=== PATIENT | female | born 1995 | race Two or more races ===

== ENCOUNTER → 2020-01-24 | Outpatient (CLI) | payer BC ==
[2020-01-24 10:43] LABS: BASO # 0.1 10^3/uL (0.0-0.2); BASO % 0.8 % (0.0-1.0); EOS # 0.5 10^3/uL (0.0-0.5); EOS % 7.6 % (0.0-3.0); HEMATOCRIT 38.3 % (36.0-47.0); HEMOGLOBIN 12.6 g/dl (12.0-15.5); LYMPH # 1.7 10^3/uL (1.5-5.0); MEAN CORPUSCULAR HEMOGLOBIN 28.7 pg (27.0-33.0); MEAN CORPUSCULAR HGB CONC 32.9 g/dl (32.0-36.5); MEAN CORPUSCULAR VOLUME 87.2 fl (80.0-96.0); MONO # 0.5 10^3/uL (0.0-0.8); MONO % 8.8 % (0.0-5.0); NEUTROPHILS # 3.4 10^3/uL (1.5-8.5); NEUTROPHILS % 55.5 % (36.0-66.0); PLATELET COUNT, AUTOMATED 249 10^3/uL (150-450); RED BLOOD COUNT 4.39 10^6/uL (4.00-5.40); WHITE BLOOD COUNT 6.2 10^3/uL (4.0-10.0)
[2020-01-24 11:32] LABS: ALBUMIN 3.7 GM/DL (3.2-5.2); ALT/SGPT 14 U/L (12-78); BILIRUBIN,TOTAL 0.4 MG/DL (0.2-1.0); BLOOD UREA NITROGEN 13 MG/DL (7-18); CALCIUM LEVEL 8.5 MG/DL (8.5-10.1); CARBON DIOXIDE LEVEL 23 MEQ/L (21-32); CHLORIDE LEVEL 111 MEQ/L (98-107); COMPLEMENT C3 80 MG/DL (90-180); COMPLEMENT C4 18 MG/DL (10-40); GLOMERULAR FILTRATION RATE > 60.0 (>60); GLUCOSE, FASTING 73 MG/DL (70-100); IMMUNOGLOBULIN G 1330 MG/DL (681-1648); POTASSIUM SERUM 4.3 MEQ/L (3.5-5.1); SODIUM LEVEL 140 MEQ/L (136-145); TOTAL PROTEIN 7.3 GM/DL (6.4-8.2)
[2020-01-29 07:23] LABS: IgG SERUM (part of Subclasses) 1511 mg/dL (586-1602); IgG Subclass 1 711 mg/dL (248-810); IgG Subclass 2 481 mg/dL (130-555); IgG Subclass 3 100 mg/dL (15-102); IgG Subclass 4 35 mg/dL (2-96)
== END ==
LOC: M WUC 08:34
PROVIDERS: ATTEND Nurse Practitioner Family
DX: R76.8 Other specified abnormal immunological findings in serum (principal)

== ENCOUNTER → 2020-03-12 | Outpatient (CLI) | payer BC ==
[2020-03-16 04:10] LABS: D001-IgE D pteronyssinus 2.57 kU/L (Class III); E001-IgE Cat Epith/Dander < 0.10 kU/L (Class 0); E003-IGE HORSE EPITHELIA/DAND <0.10 kU/L (Class 0); E004-IGE COW DANDER <0.10 kU/L (Class 0); E005-IgE Dog Dander < 0.10 kU/L (Class 0); F004-IgE Wheat 0.18 kU/L (Class 0/I); F013-IgE Peanut 0.38 kU/L (Class I); F014-IgE Soybean < 0.10 kU/L (Class 0); F026-IgE Pork < 0.10 kU/L (Class 0); F027-IgE Beef < 0.10 kU/L (Class 0); F245-IgE Egg, Whole < 0.10 kU/L (Class 0); FX02-IgE Food Mix (Sea Foods) Negative (.); G002-IgE Bermuda Grass 0.27 kU/L (Class 0/I); G008-IgE Kentucky Bluegrass 0.67 kU/L (Class II); M001-IgE Penicillium chrysogen < 0.10 kU/L (Class 0); M002 IgE Cladosporium herbaru < 0.10 kU/L (Class 0); M003 IgE Aspergillus fumigatu < 0.10 kU/L (Class 0); M006-IgE Alternaria alternata < 0.10 kU/L (Class 0); T001-IgE Maple/Box Elder 1.44 kU/L (Class III); T003-IgE Common Silver Birch 1.96 kU/L (Class III); T006-IgE Cedar, Mountain 0.32 kU/L (Class I); T007-IgE Oak, White 1.12 kU/L (Class II); T008-IgE Elm, American 0.22 kU/L (Class 0/I); T070-IgE White Mulberry 0.34 kU/L (Class I); W001-IgE Ragweed, Short 9.97 kU/L (Class IV); W009-IgE Plantain, English 0.29 kU/L (Class 0/I); W014-IgE Pigweed, Rough < 0.10 kU/L (Class 0); W018-IgE Sheep Sorrel < 0.10 kU/L (Class 0)
== END ==
LOC: M WUC 14:55
PROVIDERS: ATTEND Nurse Practitioner Family
DX: J30.1 Allergic rhinitis due to pollen (principal); J30.81 Allergic rhinitis due to animal (cat) (dog) hair and dander; J30.89 Other allergic rhinitis

== ENCOUNTER → 2022-03-21 | Outpatient (CLI) | payer BC ==
[2022-03-21 17:58] LABS: IMMUNOGLOBULIN E 73.8 IU/ML (<100)
== END ==
LOC: M WUC 10:51
PROVIDERS: ATTEND Nurse Practitioner Family
DX: J45.20 Mild intermittent asthma, uncomplicated (principal); J30.1 Allergic rhinitis due to pollen; J30.81 Allergic rhinitis due to animal (cat) (dog) hair and dander; J30.89 Other allergic rhinitis; R05.9 Cough, unspecified; R94.2 Abnormal results of pulmonary function studies; E73.0 Congenital lactase deficiency

== ENCOUNTER → 2022-09-05 | Outpatient (CLI) | payer BC | LOC: M WUC 11:57 | PROVIDERS: ATTEND Physician Assistant | DX: R06.00 Dyspnea, unspecified (principal) ==

== ENCOUNTER → 2022-11-22 | Outpatient (CLI) | payer BC ==
[~2022-11-22] MED LIST: METHACHOLINE KIT INH ONE
== END ==
LOC: M CARPUL 14:37
PROVIDERS: ATTEND Physician Assistant
DX: R06.00 Dyspnea, unspecified (principal)

== ENCOUNTER → 2023-08-29 | Outpatient (CLI) | payer OTHER ==
[2023-08-29 20:00] LABS: BASO # 0.1 10^3/uL (0.0-0.2); BASO % 0.9 % (0.0-1.0); EOS # 0.9 10^3/uL (0.0-0.5); EOS % 11.9 % (0.0-3.0); HEMATOCRIT 43.3 % (36.0-47.0); HEMOGLOBIN 13.6 g/dl (12.0-15.5); LYMPH # 1.3 10^3/uL (1.5-5.0); LYMPH % 17.7 % (24.0-44.0); MEAN CORPUSCULAR HGB CONC 31.4 g/dl (32.0-36.5); MEAN CORPUSCULAR VOLUME 89.1 fl (80.0-96.0); MONO # 0.8 10^3/uL (0.0-0.8); MONO % 11.3 % (2.0-8.0); NEUTROPHILS # 4.3 10^3/uL (1.5-8.5); NEUTROPHILS % 57.8 % (36.0-66.0); PLATELET COUNT, AUTOMATED 400 10^3/uL (150-450); RED BLOOD COUNT 4.86 10^6/uL (4.00-5.40); WHITE BLOOD COUNT 7.5 10^3/uL (4.0-10.0)
== END ==
LOC: M WUC 11:39
PROVIDERS: ATTEND Physician Assistant
DX: J45.40 Moderate persistent asthma, uncomplicated (principal)

== ENCOUNTER → 2024-02-14 | Outpatient (CLI) | payer OTHER ==
[2024-02-15 11:32] LABS: COMPLEMENT C3 107.1 MG/DL (84.0-160.0); COMPLEMENT C4 29.9 MG/DL (12-36); IMMUNOGLOBULIN A 205.2 MG/DL (40-350); IMMUNOGLOBULIN G 1819 MG/DL (650-1600)
== END ==
LOC: M WUC 10:22
PROVIDERS: ATTEND Allergy & Immunology
DX: J30.1 Allergic rhinitis due to pollen (principal); J32.0 Chronic maxillary sinusitis; R05.3 Chronic cough

== ENCOUNTER → 2024-09-02 | Outpatient (CLI) | payer OTHER | LOC: M WUC 11:49 | PROVIDERS: ATTEND Nurse Practitioner Family | DX: E73.9 Lactose intolerance, unspecified (principal); Z91.018 Allergy to other foods ==

== ENCOUNTER → 2025-05-19 | Outpatient (CLI) | payer OTHER ==
[2025-05-19 13:05] LABS: COMPLEMENT C4 36.2 MG/DL (12-36)
[2025-05-19 13:09] LABS: IMMUNOGLOBULIN E 68.1 IU/ML (0-378)
[2025-05-21 07:06] LABS: F025-IGE TOMATO 0.24 kU/L (Class 0/I)
[2025-05-21 09:43] LABS: ALPHA 1 ANTITRYPSIN 151 mg/dL (83-199)
[2025-05-21 15:13] LABS: ALMOND IGE FOOD 0.48 kU/L (<0.10); BERMUDA GRASS IGE 0.14 kU/L (<0.10); BIRCH IGE 3.59 kU/L (<0.10); BRAZIL NUT CLASS IGE <0.10 ABSENT (<0.10); BRAZIL NUT IGE < 0.10 kU/L (<0.10); CASHEW NUT IGE FOOD < 0.10 kU/L (<0.10); CODFISH IGE FOOD < 0.10 kU/L (<0.10); COMMON RAGWEED SHORT IGE 5.06 kU/L (<0.10); COWS MILK FOOD < 0.10 kU/L (<0.10); D001 IGE D PTERONYSSINUS 0.81 kU/L (<0.10); D002-IGE D FARINAE 0.55 kU/L (<0.10); E001-IGE CAT DANDER < 0.10 kU/L (<0.10); E003-IGE HORSE EPITHELIA/DAND < 0.10 kU/L (<0.10); E004-IGE COW DANDER < 0.10 kU/L (<0.10); E005-IGE DOG DANDER < 0.10 kU/L (<0.10); EGG WHITE FOOD < 0.1 kU/L (<0.10); ELM IGE 0.42 kU/L (<0.10); HAZELNUT IGE FOOD 1.65 kU/L (<0.10); I006 IGE COCKROACH 0.38 kU/L (<0.10); IMMUNOGLOBULIN E FOR ALLERGENS 86 kU/L (<OR=114); M006 IGE ALTERNIA ALTERNATA < 0.10 kU/L (<0.10); M1-PENICILLIUM NOTATUM < 0.10 kU/L (<0.10); MACADAMIA NUT CLASS IGE 0.10-0.34 VERY LOW (<0.10); MOUSE URINE IGE < 0.10 kU/L (<0.10); MUGWORT IGE 0.56 kU/L (<0.10); OAK IGE 1.58 kU/L (<0.10); PEANUT IGE FOOD 0.38 kU/L (<0.10); ROUGH PIGWEED IGE < 0.10 kU/L (<0.10); SALMON IGE FOOD < 0.10 kU/L (<0.10); SCALLOP IGE FOOD < 0.10 kU/L (<0.10); SESAME SEED IGE FOOD < 0.10 kU/L (<0.10); SHEEP SORREL IGE 0.21 kU/L (<0.10); SHRIMP IGE FOOD < 0.10 kU/L (<0.10); SOYBEAN IGE FOOD < 0.10 kU/L (<0.10); T001-IGE MAPLE BOX ELDER 0.83 kU/L (<0.10); T006-IGE MOUNTAIN CEDAR 0.20 kU/L (<0.10); T014 COTTONWOOD IGE 0.11 kU/L (<0.10); TIMOTHY GRASS IGE 0.15 kU/L (<0.10); TUNA IGE FOOD < 0.10 kU/L (<0.10); WALNUT IGE FOOD < 0.10 kU/L (<0.10); WALNUT TREE IGE 0.24 kU/L (<0.10); WHEAT IGE FOOD < 0.10 kU/L (<0.10); WHITE ASH IGE 0.29 kU/L (<0.10); WHITE MULBERRY IGE < 0.10 kU/L (<0.10)
== END ==
LOC: M WUC 09:48
PROVIDERS: ATTEND Nurse Practitioner Family
DX: J30.1 Allergic rhinitis due to pollen (principal); R05.9 Cough, unspecified; J30.81 Allergic rhinitis due to animal (cat) (dog) hair and dander; J30.89 Other allergic rhinitis; J45.20 Mild intermittent asthma, uncomplicated; H10.45 Other chronic allergic conjunctivitis; Z91.010 Allergy to peanuts